=== PATIENT | female | born 1980 | race Caucasian/White ===

== ENCOUNTER 2019-05-25 23:29 | Emergency (ER) | payer BC, OTHER ==
[2019-05-25 23:39] VITALS: BP 134/95; PULSE 96; TEMP 98; BMI 35.9
[2019-05-26] MEDS ORDERED: AMOX TR/POT CLAV 875MG/125MG TABLETS (FP) PO ONE (00:26)
--- NOTE | 2019-05-26 00:26 | PDOC ---
History of Present Illness - General Chief Complaint: Injury Stated Complaint: SCRATCH FROM STRAY CAT Time Seen by Provider: 05/26/19 00:14 - History of Present Illness Initial Comments: 05/26/19 00:18 CHIEF COMPLAINT: cat scratch HISTORY OF PRESENT ILLNESS: 39 yo F with no PMH presents to ED with scratch to right cheek. Patient reports a stray cat came up to her and she picked it up with a sheet but her neighbor suddenly opened the door quickly and "the cat got spooked" and scratched her face. Patient reports that the she was able to put the cat in a carrier and keep it in her bathroom. No recent travel or sick contacts. PAST MEDICAL HISTORY: Denies past medical history FAMILY HISTORY: Denies SOCIAL HISTORY: Denies tobacco, alcohol, illicit drug use. SURGICAL HISTORY: Denies ALLERGIES: No known drug allergies REVIEW OF SYSTEMS General/Constitutional: Denies fever or chills. Denies weakness, weight change. HEENT: Scratch to right cheek. Denies change in vision. Denies ear pain or discharge. Denies sore throat. Cardiovascular: Denies chest pain or shortness of breath. Respiratory: Denies cough, wheezing, or hemoptysis. Gastrointestinal: Denies nausea, vomiting, diarrhea or constipation. Denies rectal bleeding. Genitourinary: Denies dysuria, frequency, or change in urination. Musculoskeletal: Denies joint or muscle swelling or pain. Denies neck or back pain. Skin and breasts: Denies rash or easy bruising. Neurologic: Denies headache, vertigo, loss of consciousness, or loss of sensation. Psychiatric: Denies depression or anxiety. PHYSICAL EXAM General Appearance: Well-appearing, appropriately dressed. No apparent distress , no intoxication. HEENT: Superficial scratch approximately 3 mm in length to R cheek. EOMI, PERRLA , normal ENT inspection, normal voice, TMs normal, pharynx normal. No conjunctival pallor. No photophobia, scleral icterus. Neck: Supple. Trachea midline. No tenderness, rigidity, carotid bruit, stridor , lymphadenopathy, or thyromegaly. Respiratory/Chest: Lungs CTAB. No shortness of breath, chest tenderness, respiratory distress, accessory muscle use. No crackles, rales, rhonchi, stridor , wheezing, dullness Cardiovascular: RRR. S1, S2. No JVD, murmur, bradycardia, tachycardia. Vascular Pulses: Dorsalis-Pedis (R): 2+, Dorsalis-Pedis (L): 2+ Gastrointestinal/Abdominal: Normal bowel sounds. Abdomen soft, non-distended. No tenderness or rebound tenderness. No organomegaly, pulsatile mass, guarding , hernia, hepatomegaly, splenomegaly. Lymphatic: No adenopathy, tenderness. Musculoskeletal/Extremities: Normal inspection. FROM of all extremities, normal capillary refill. Pelvis Stable. No CVA tenderness. No tenderness to extremities, pedal edema, swelling, erythema or deformity. Integumentary: Appropriate color, dry, warm. 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 Fully oriented, alert. Appropriate mood/affect. Motor strength 5/5. No appreciable EOM palsy, facial droop or sensory deficit. 05/26/19 00:27 Past History - Past Medical History Allergies/Adverse Reactions: Allergies Allergy/AdvReac Type Severity Reaction Status Date / Time No Known Allergies Allergy Verified 05/25/19 23:39 Home Medications: Ambulatory Orders Cyclobenzaprine HCl [Flexeril -] 10 mg PO BID PRN #10 tablet 01/22/18 Naproxen [Naprosyn] 500 mg PO ASDIR 01/22/18 Sulfamethoxazole/Trimethoprim [Bactrim Ds -] 1 tab PO BID #10 tablet 05/26/19 COPD: No Seizures: Yes - Psycho Social/Smoking Cessation Hx Smoking Status: Yes Smoking History: Never smoked Have you smoked in the past 12 months: No Number of Cigarettes Smoked Daily: 0 Hx Alcohol Use: (rarely) *Physical Exam - Vital Signs Last Vital Signs Temp Pulse Resp BP Pulse Ox 98 F 96 H 18 134/95 99 05/25/19 23:36 05/25/19 23:36 05/25/19 23:36 05/25/19 23:36 05/25/19 23:36 Medical Decision Making - Medical Decision Making 05/26/19 00:28 39 yo F with no PMH presents to ED with scratch to right cheek. -Augmentin RPEP not indicated at this time as patient is able to be observed. [facility] reporting documents faxed. 05/26/19 01:13 Advised patient to take medication as prescribed and that [facility] will be contacting her for animal observation. Advised patient of signs and symptoms for return to ED. Patient verbalized understanding and agrees to plan. Discharge - Discharge Information Problems reviewed: Yes Clinical Impression/Diagnosis: Cat scratch of cheek Qualifiers: Encounter type: initial encounter Qualified Code(s): S00.81XA - Abrasion of other part of head, initial encounter; W55.03XA - Scratched by cat, initial encounter Condition: Stable Disposition: HOME - Admission No - Additional Discharge Information Prescriptions: Sulfamethoxazole/Trimethoprim [Bactrim Ds -] 1 tab PO BID #10 tablet - Follow up/Referral Referrals: Alireza Win [Outside] - Patient Discharge Instructions Patient Printed Discharge Instructions: DI for Abrasion Additional Instructions: Please take medications as prescribed. You will be contacted by the department of health regarding observation of the animal. If you develop any fever, chills , nausea, vomiting, diarrhea, or the area of the scratch becomes swollen, hot, red, or painful, please return to the ER. - Post Discharge Activity
[2019-05-26] MEDS ORDERED: SULFAMETHOXAZOLE/TRIMETHOPRIM 800MG/160MG D.S. TABLET PO ONE (01:16)
[2019-05-26] MEDS ORDERED: SULFAMETHOXAZOLE/TRIMETHOPRIM 800MG/160MG D.S. TABLET ONE (01:54)
== END 2019-05-26 01:59 | disposition home or self-care (01) ==
LOC: JER 23:29
DX: S00.81XA Abrasion of other part of head, initial encounter (principal); W55.03XA Scratched by cat, initial encounter; Y93.89 Activity, other specified; Y92.89 Other specified places as the place of occurrence of the external cause; Y99.8 Other external cause status
CPT/HCPCS: 99281-25

== ENCOUNTER 2020-09-07 17:59 | Emergency (ER) | payer BC, OTHER ==
[2020-09-07 18:36] VITALS: BP 126/87; PULSE 78; TEMP 98.3; BMI 34.0
[2020-09-07] MEDS ORDERED: DIPHTH,PERTUSS(ACELL),TET 0.5 ML DISP.SYRIN IM ONE ×2 (18:49→18:50)
== END 2020-09-07 19:26 | disposition home or self-care (01) ==
LOC: JERFT 17:59
PROC: 3E0234Z Introduction of Serum, Toxoid and Vaccine into Muscle, Percutaneous Approach (ICD-10-PCS; principal; 2020-09-07)
DX: S61.011A Laceration without foreign body of right thumb without damage to nail, initial encounter (principal)
CPT/HCPCS: 90715; 99284-25